=== PATIENT | male | born 1960 | race Caucasian/White ===

== ENCOUNTER 2024-01-27 12:32 | Outpatient (CLI) | payer BC | END 2024-01-27 12:33 | disposition home or self-care (01) | LOC: CSHCT 12:32 | PROVIDERS: ATTEND Family Medicine | DX: Z12.2 Encounter for screening for malignant neoplasm of respiratory organs (principal); Z87.891 Personal history of nicotine dependence; I25.10 Atherosclerotic heart disease of native coronary artery without angina pectoris; J43.9 Emphysema, unspecified; J98.09 Other diseases of bronchus, not elsewhere classified | CPT/HCPCS: 71271 ==